=== PATIENT | male | born 1955 | race American Indian/Alaskan Native ===

== ENCOUNTER 2019-03-23 10:45 | Day surgery (SDC) | payer MEDICARE ==
[~2019-03-23 10:45] MED LIST: IOPIDINE OD ONE; IOPIDINE ONE; MYDRIACYL ONE; NEOFRIN ONE
[2019-03-23] MEDS ORDERED: MYDRIACYL OD ONE (11:40)
[2019-03-23] MEDS ORDERED: NEOFRIN OD ONE (11:40)
[2019-03-23] MEDS ORDERED: IOPIDINE OD ONE ×2 (11:40→12:20)
[2019-03-23 11:47] VITALS: BP 131/76
== END 2019-03-23 12:24 | disposition home or self-care (01) ==
LOC: OR 10:45
PROVIDERS: ATTEND Ophthalmology
DX: H26.492 Other secondary cataract, left eye (principal); I10 Essential (primary) hypertension; G47.30 Sleep apnea, unspecified; M19.90 Unspecified osteoarthritis, unspecified site; Z72.89 Other problems related to lifestyle; Z88.8 Allergy status to other drugs, medicaments and biological substances; Z98.42 Cataract extraction status, left eye; Z98.41 Cataract extraction status, right eye; Z79.899 Other long term (current) drug therapy; Z98.890 Other specified postprocedural states; Z87.442 Personal history of urinary calculi; Z85.46 Personal history of malignant neoplasm of prostate; Z86.2 Personal history of diseases of the blood and blood-forming organs and certain disorders involving the immune mechanism